=== PATIENT | female | born 1985 | race African-American/Black ===

== ENCOUNTER 2017-08-03 09:01 | Emergency (ER) | payer OTHER ==
[~2017-08-03] VITALS: Ht 154.9 cm; Wt 58.5 kg
[~2017-08-03 09:01] MED LIST: ACETAMINOPHEN325 M1 PO; ADDERALL 20 MG20 M1 PO; ALLEGRA ALLERGY60 MG PO; AMBIEN 10 MG TA10 MG PO; HYDROCODON-ACE1 EACH PO; IBUPROFEN 400400 M1 PO; LEXAPRO 10 MG T10 MG PO; NAPHCON-A EYE D15 ML OP; RISPERDAL 1 MG T1 MG PO; XANAX 0.5 MG0.5 M1 PO
[2017-08-03 09:08] VITALS: BP 147/100
[2017-08-03] MEDS ORDERED: AUGMENTIN 500-1 EACH PO (09:44)
[2017-08-03] MEDS ORDERED: DIFLUCAN200 MG PO (10:09)
== END 2017-08-03 11:10 | disposition home or self-care (01) ==
LOC: ER 09:01
DX: S61.252A Open bite of right middle finger without damage to nail, initial encounter (principal); W54.0XXA Bitten by dog, initial encounter; Y93.89 Activity, other specified; Y92.830 Public park as the place of occurrence of the external cause; Y99.8 Other external cause status